=== PATIENT | female | born 1965 | race Caucasian/White ===

== ENCOUNTER 2022-01-25 09:13 | Outpatient (CLI) | payer OTHER | END 2022-01-25 09:14 | disposition home or self-care (01) | LOC: LAB 09:13 | PROVIDERS: ATTEND Internal Medicine Endocrinology, Diabetes & Metabolism | DX: E03.9 Hypothyroidism, unspecified (principal); E78.5 Hyperlipidemia, unspecified; E11.9 Type 2 diabetes mellitus without complications ==

== ENCOUNTER 2022-10-24 13:12 | Outpatient (CLI) | payer OTHER | END 2022-10-24 13:21 | disposition home or self-care (01) | LOC: MAMO-SONO 13:12 | PROVIDERS: ATTEND Obstetrics & Gynecology | DX: Z12.31 Encounter for screening mammogram for malignant neoplasm of breast (principal); N63.0 Unspecified lump in unspecified breast ==

== ENCOUNTER 2022-11-26 08:36 | Outpatient (CLI) | payer OTHER | END 2022-11-26 08:37 | disposition home or self-care (01) | LOC: LAB 08:36 | DX: E03.9 Hypothyroidism, unspecified (principal); E78.5 Hyperlipidemia, unspecified; E11.9 Type 2 diabetes mellitus without complications ==